=== PATIENT | female | born 1990 | race Caucasian/White ===

== ENCOUNTER 2016-05-06 07:00 | Inpatient (IN) | payer OTHER ==
[2016-05-06] MEDS ORDERED: CITRIC ACID/SODIUM CITRATE 30 ML UNIT-DOSE CUP PO ONE (08:00)
[2016-05-06] MEDS ORDERED: ELECTROLYTE-148 SOLN 1,000 ML IV SCH (08:00)
[2016-05-06] MEDS ORDERED: ONDANSETRON 4 MG/2 ML VIAL IVPB PRN (08:06)
[2016-05-06] MEDS ORDERED: KETOROLAC TROMETHAMINE 30 MG/1 ML VIAL IM PRN (08:12)
[2016-05-06 08:22] VITALS: BMI 17.3
[2016-05-06] MEDS: ELECTROLYTE-148 SOLN 1,000 ML IV SCH (08:35)
--- NOTE | 2016-05-06 09:17 | HP ---
Past Medical History - Primary Care Physician PCP:: Karthik Cortes - Admission Chief Complaint: 38 weeks, previous c/s request of repeat c/s History of Present Illness: 25 yo f edc by date 05/08/16, by late sono 05/13/16 with previous c//s unknown type requesting repeat c/s, risk of repeat c/s discussed, explained ,declined ,fhr cat 1 tracing, cx clp History Source: Patient Limitations to Obtaining History: Language Barrier - Past Medical History ...: 2 ...Para: 1 ...Term: 1 ...: 0 ...Spon : 0 ...Induced : 0 ...Multiple Gestation: 0 ...LMP: 08/02/15 ... Weeks Gestation by Dates: 39.5 ...EDC by Dates: 05/08/16 ...EDC by Sono: 05/13/16 Infectious Disease: Yes: STD's (txed for chlamydia ,apr 29) - Past Surgical History Past Surgical History: Yes: Hx Myomectomy: No Hx Transabdominal Cerclage: No - Smoking History Smoking history: Never smoked Have you smoked in the past 12 months: No - Alcohol/Substance Use Hx Alcohol Use: No - Social History Usual Living Arrangement: Yes: With Spouse History of Recent Travel: No Home Medications - Allergies Allergies/Adverse Reactions: Allergies Allergy/AdvReac Type Severity Reaction Status Date / Time No Known Allergies Allergy Verified 05/06/16 07:31 - Home Medications Home Medications: Ambulatory Orders Ferrous Sulfate [Feosol] 325 mg PO DAILY 04/29/16 Vit/Iron Fumarate/FA [ Tablet] 1 tablet PO DAILY 04/29/16 Review of Systems - Review of Systems Constitutional: reports: No Symptoms Eyes: reports: No Symptoms HENT: reports: No Symptoms Neck: reports: No Symptoms Cardiovascular: reports: No Symptoms Respiratory: reports: No Symptoms Gastrointestinal: reports: No Symptoms Genitourinary: reports: No Symptoms Breasts: reports: No Symptoms Reported Musculoskeletal: reports: No Symptoms Integumentary: reports: No Symptoms Neurological: reports: No Symptoms Endocrine: reports: No Symptoms Hematology/Lymphatic: reports: No Symptoms Psychiatric: reports: No Symptoms Physical Exam - Maternity Vital Signs: Vital Signs Temperature 98.2 F 05/06/16 07:30 Pulse Rate 104 H 05/06/16 07:30 Respiratory Rate 18 05/06/16 07:30 Blood Pressure 127/76 05/06/16 07:30 O2 Sat by Pulse Oximetry (%) Constitutional: Yes: Well Nourished, No Distress, Calm Eyes: Yes: WNL, Conjunctiva Clear, EOM Intact HENT: Yes: WNL, Atraumatic, Normocephalic Neck: Yes: WNL, Supple, Trachea Midline Cardiovascular: Yes: WNL, Regular Rate and Rhythm Breast(s): Yes: WNL - Abdominal Exam/OB Fundal Height: 40 Number of Fetuses: Single Presentation: Vertex Contractions: No Intensity: Unaware Heart Rate Location: [facility] Category: I Accelerations: Uniform Decelerations: None - Vaginal Exam/OB Vaginal Bleediing: No Speculum Exam: No Dilatation (cm): closed Effacement (%): 0 Amniotic Membrane Status: Intact Presentation: Vertex/Position Station: -3 - Physical Exam Extremities: Yes: WNL Edema: Yes Edema: LLE: Trace, RLE: Trace Integumentary: Yes: Rash (hx of eczyma both arm) Deep Tendon Reflex Grade: Normal +2 ...Motor Strength: WNL Hemorrhage Risk Assessment - Risk Factors Medium Risk Factors: Yes: Prior , uterine surgery,or multiple laparotomies Risk Score: 1 Risk Level: Medium Risk Problem List - Problems (1) with 39 completed weeks gestation Code(s): Z3A.39 - 39 WEEKS GESTATION OF (2) Previous section complicating Code(s): O34.21 - MATERNAL CARE FOR SCAR FROM PREVIOUS * DO NOT USE * Assessment/Plan repeat c/s ,rba discussed
[2016-05-06] MEDS: CEFAZOLIN 1 GM/D5W 50 ML IVPB SCH ×2 (09:20→17:33)
[2016-05-06] MEDS ORDERED: BENZOCAINE 28 GM HEMORRHOIDAL OINTMENT PR PRN (09:59)
[2016-05-06] MEDS ORDERED: IBUPROFEN 800 MG/8 ML IJ IVPB PRN (09:59)
[2016-05-06] MEDS ORDERED: oxyCODONE HCL 5 MG TABLET PO PRN (09:59)
[2016-05-06] MEDS ORDERED: METHYLERGONOVINE MALEATE 0.2 MG/1 ML AMP IM PRN (09:59)
[2016-05-06] MEDS ORDERED: BENZOCAINE 20% 57 GM BOTTLE TP PRN (09:59)
[2016-05-06] MEDS ORDERED: diphenhydrAMINE HCL 25 MG CAPSULE (FP) PO PRN (09:59)
[2016-05-06] MEDS ORDERED: WITCH HAZEL 50% (TUCKS) 40 PAD/JAR PAD TP PRN (09:59)
[2016-05-06] MEDS ORDERED: OXYTOCIN 20 UNITS in 0.9% NS 1,000 ML IV SCH (10:00)
[2016-05-06] MEDS: FERROUS SO4 325 MG TABLET (FP) PO SCH (10:42)
[2016-05-06 11:34] LABS: URINE MARIJUANA THC NEGATIVE ng/ml (CUTOFF=50)
--- NOTE | 2016-05-06 14:50 | OP ---
DATE OF OPERATION: 05/06/2016 PREOPERATIVE DIAGNOSIS: , 39 weeks, previous section, request of repeat section. POSTOPERATIVE DIAGNOSIS: , 39 weeks, previous section, request of repeat section. PROCEDURE: Repeat low segment transverse section. SURGEON: Nadja Cortes MD UKE OPERATOR: MOUNIKA Montilla ANESTHESIOLOGIST: ESTIMATED BLOOD LOSS: 500 mL. FINDING: Live baby girl, LOT position, cord around the neck x1. OPERATION: The patient was taken to the operating room, had adequate spinal anesthesia. Abdomen and perineum were prepped and draped. Pfannenstiel abdominal skin incision was made over the previous incision. Old scar was removed. Abdominal wall was cut layer by layer until peritoneum was exposed and incised. Upon entering the abdominal cavity, lower uterine segment was identified, and uterovesical fold of peritoneum was established, bladder was pushed down. Then, with the lower blade of the [place] retractor in the pelvis, a low transverse uterine incision was made. Incision extended laterally. Amniotic sac was entered. Clear fluid, head delivered, and nasopharynx was suctioned. Cord around the neck x1 was reduced, and live baby girl was delivered from LOT position without any difficulty. Placenta was delivered manually. Uterine cavity was cleaned of all remaining tissue. Uterine incision was closed using 2 layers, 1st layer with 0 Biosyn continuous suture, the 2nd layer with 0 Biosyn imbricating the 1st layer. Bladder flap was closed with 0 Biosyn continuous suture. Both tubes and ovaries were checked, but normal. No active bleeding was seen. All the lap pad, sponge, and instrument counts were correct. Then, peritoneum was closed with 0 Biosyn continuous suture, muscles were brought together with interrupted sutures of 0 Biosyn, fascia was closed with 0 Biosyn continuous suture, subcutaneous fat with interrupted suture of 0 Biosyn, and the skin was closed with ej. Patient tolerated the procedure well, left the OR in good condition. NADJA CORTES M.D. [id number]
[2016-05-06] MEDS: DEXTROSE 5%-LACTATED RINGERS 1,000 ML IV SCH (17:34)
[2016-05-07] MEDS: ACETAMINOPHEN 325 MG TABLET (FP) PO PRN ×4 (03:07→21:33)
[2016-05-07] MEDS: IBUPROFEN 600 MG TABLET (FP) PO PRN ×4 (03:07→21:34)
[2016-05-07] MEDS: DEXTROSE 5%-LACTATED RINGERS 1,000 ML IV SCH (03:08)
[2016-05-07 05:56] LABS: BASOPHIL 0.5 % (0-2.0); MCH 28.3 pg (25.7-33.7); MCHC 33.1 g/dl (32.0-36.0); MEAN CELL VOLUME 85.3 fl (80-96); MEAN PLT VOLUME 9.3 fl (7.5-11.1); NEUTROPHILS 65.5 % (42.8-82.8); PLATELET COUNT 170 K/MM3 (134-434); RDW 14.8 % (11.6-15.6); WHITE BLOOD COUNT 7.6 K/mm3 (4.0-10.0)
--- NOTE | 2016-05-07 06:44 | PN ---
Post Progress Note - Subjective Subjective: c/o pain scale 5/10 not voided since partida is taken out Post Day: 1 Type of Delivery: Repeat C/S Vital Signs: Vital Signs Temperature 98.7 F 05/07/16 05:57 Pulse Rate 69 05/07/16 05:57 Respiratory Rate 18 05/07/16 05:57 Blood Pressure 100/58 05/07/16 05:57 O2 Sat by Pulse Oximetry (%) 100 05/06/16 11:45 Breast Exam: Yes: Soft. No: Engorged Uterus: Yes: Fundus Firm, Fundus below umbilicus, Non-tender Incision: Yes: Dressing dry and intact. No: Redness, Oozing Abdomen/GI: Yes: Abdomen soft (BS active), Tender, Tolerating PO (vclear liqiuids ). No: Abdominal Distention, Passing flatus Lochia: Yes: Rubra Lochia, amount: Moderate Extremities: Yes: Calves non-tender Activity: Other (not oob yet ) - Labs Labs: CBC WBC 7.6 K/mm3 (4.0-10.0) 05/07/16 05:35 RBC 3.72 M/mm3 (3.60-5.2) 05/07/16 05:35 Hgb 10.5 GM/dL (10.7-15.3) L 05/07/16 05:35 Hct 31.7 % (32.4-45.2) L 05/07/16 05:35 MCV 85.3 fl (80-96) 05/07/16 05:35 MCHC 33.1 g/dl (32.0-36.0) 05/07/16 05:35 RDW 14.8 % (11.6-15.6) 05/07/16 05:35 Plt Count 170 K/MM3 (134-434) 05/07/16 05:35 MPV 9.3 fl (7.5-11.1) 05/07/16 05:35 Neutrophils % 65.5 % (42.8-82.8) D 05/07/16 05:35 Lymphocytes % 22.7 % (8-40) D 05/07/16 05:35 Monocytes % 8.3 % (3.8-10.2) 05/07/16 05:35 Eosinophils % 3.0 % (0-4.5) 05/07/16 05:35 Basophils % 0.5 % (0-2.0) 05/07/16 05:35 Other Findings, Remarks: i/o adequate Assessment/Plan ass stable encourage anbulation, deep breathing repeat cbc today
[2016-05-07] MEDS: ENOXAPARIN NA (PORCINE) 40 MG/0.4 ML DISP.SYRIN SQ SCH (09:54)
[2016-05-07] MEDS: SIMETHICONE 80 MG TAB.CHEW (FP) PO PRN ×3 (09:54→21:32)
[2016-05-07] MEDS ORDERED: BISACODYL 10 MG SUPP.RECT RC PRN (09:59)
[2016-05-07] MEDS ORDERED: DIPHTH,PERTUSS(ACELL),TET 0.5 ML DISP.SYRIN IM ONE (10:00)
[2016-05-07] MEDS: FERROUS SO4 325 MG TABLET (FP) PO SCH (10:01)
[2016-05-07] MEDS: PRENATAL VITAMINS W/ FOLIC ACID TABLET (FP) PO SCH (10:01)
--- NOTE | 2016-05-07 14:52 | PN ---
Progress Note, Physician Chief Complaint: Pt. has not gotten out of bed yet. is moving extremities and has good strength. No HUNTER, Still has partida. - Current Medication List Current Medications: Active Medications Acetaminophen (Tylenol -) 650 mg PO Q4H PRN PRN Reason: FEVER OR PAIN Last Admin: 05/07/16 09:53 Dose: 650 mg Benzocaine (Americaine Ointment -) 1 applic LA PRN PRN PRN Reason: PAIN Benzocaine (Americaine 20% [place] -) 1 spray TP PRN PRN PRN Reason: PAIN Bisacodyl (Dulcolax Suppository -) 10 mg RC PRN PRN PRN Reason: CONSTIPATION Diphenhydramine HCl (Benadryl Injection -) 25 mg IVPUSH Q4H PRN PRN Reason: Pruritis Diphenhydramine HCl (Benadryl -) 25 mg PO Q8H PRN PRN Reason: FOR ITCHING Enoxaparin Sodium (Lovenox -) 40 mg SQ DAILY [facility] Last Admin: 05/07/16 09:54 Dose: 40 mg Ferrous Sulfate (Feosol -) 325 mg PO DAILY [facility] Last Admin: 05/07/16 10:01 Dose: Not Given Parenteral Electrolytes (Plasma-Lyte 148 -) 1,000 mls @ 125 mls/hr IV ASDIR [facility] Last Admin: 05/06/16 08:35 Dose: 125 mls/hr Dextrose/Lactated Ringer's (D5-Lr -) 1,000 mls @ 125 mls/hr IV ASDIR [facility] Last Admin: 05/07/16 03:08 Dose: 125 mls/hr Ibuprofen (Motrin -) 600 mg PO Q4H PRN PRN Reason: PAIN Last Admin: 05/07/16 09:52 Dose: 600 mg Ketorolac Tromethamine (Toradol Injection -) 30 mg IM Q6H PRN PRN Reason: PAIN Stop: 05/11/16 08:11 Methylergonovine Maleate (Methergine Injection -) 0.2 mg IM Q4H PRN PRN Reason: EXCESSIVE BLEEDING Oxycodone HCl (Roxicodone -) 5 mg PO Q4H PRN PRN Reason: PAIN LEVEL 1-5 Oxycodone HCl (Roxicodone -) 10 mg PO Q4H PRN PRN Reason: PAIN LEVEL 6-10 Multivit/Folic Acid/Iron ( Vitamins (Sjr) -) 1 tab PO DAILY [facility] Last Admin: 05/07/16 10:01 Dose: Not Given Senna/Docusate Sodium (Pericolace -) 2 tablet PO HS PRN PRN Reason: CONSTIPATION Simethicone (Mylicon -) 80 mg PO Q4H PRN PRN Reason: GAS Last Admin: 05/07/16 09:54 Dose: 80 mg Witch Susan/Glycerin (Tucks Pads -) 1 pad TP PRN PRN PRN Reason: PAIN - Objective Vital Signs: Vital Signs Temperature 97.8 F 05/07/16 10:00 Pulse Rate 72 05/07/16 10:00 Respiratory Rate 20 05/07/16 10:00 Blood Pressure 105/69 05/07/16 10:00 O2 Sat by Pulse Oximetry (%) 100 05/06/16 11:45 Constitutional: Yes: Well Nourished, No Distress, Calm Musculoskeletal: Yes: WNL Neurological: Yes: WNL, Alert, Oriented ...Motor Strength: WNL Labs: CBC, BMP 05/07/16 05:35 Assessment/Plan POD#1 s/p under spinal. Doing well. D/C from anesthesia care when she voids.
[2016-05-07] MEDS: oxyCODONE HCL 5 MG TABLET PO PRN (22:57)
--- NOTE | 2016-05-08 06:14 | PN ---
Post Progress Note Post Day: 2 Type of Delivery: Repeat C/S Vital Signs: Vital Signs Temperature 98.4 F 05/07/16 22:00 Pulse Rate 73 05/07/16 22:00 Respiratory Rate 18 05/07/16 22:00 Blood Pressure 119/75 05/07/16 22:00 O2 Sat by Pulse Oximetry (%) 100 05/06/16 11:45 Breast Exam: Yes: Soft Uterus: Yes: Fundus Firm Incision: Yes: [place] intact Abdomen/GI: Yes: Abdomen soft Lochia: Yes: Rubra Lochia, amount: Small Extremities: Yes: Calves non-tender Perineum: Yes: Intact Activity: Ambulating - Labs Labs: CBC WBC 7.6 K/mm3 (4.0-10.0) 05/07/16 05:35 RBC 3.72 M/mm3 (3.60-5.2) 05/07/16 05:35 Hgb 10.5 GM/dL (10.7-15.3) L 05/07/16 05:35 Hct 31.7 % (32.4-45.2) L 05/07/16 05:35 MCV 85.3 fl (80-96) 05/07/16 05:35 MCHC 33.1 g/dl (32.0-36.0) 05/07/16 05:35 RDW 14.8 % (11.6-15.6) 05/07/16 05:35 Plt Count 170 K/MM3 (134-434) 05/07/16 05:35 MPV 9.3 fl (7.5-11.1) 05/07/16 05:35 Neutrophils % 65.5 % (42.8-82.8) D 05/07/16 05:35 Lymphocytes % 22.7 % (8-40) D 05/07/16 05:35 Monocytes % 8.3 % (3.8-10.2) 05/07/16 05:35 Eosinophils % 3.0 % (0-4.5) 05/07/16 05:35 Basophils % 0.5 % (0-2.0) 05/07/16 05:35 Assessment/Plan as sabove oob pain meds
[2016-05-08] MEDS: SIMETHICONE 80 MG TAB.CHEW (FP) PO PRN ×3 (08:19→22:59)
[2016-05-08] MEDS: oxyCODONE HCL 5 MG TABLET PO PRN ×3 (08:19→22:59)
[2016-05-08] MEDS: ACETAMINOPHEN 325 MG TABLET (FP) PO PRN ×3 (08:20→23:04)
[2016-05-08] MEDS: guaiFENesin 200 MG/10 ML 10 ML UNIT-DOSE CUPS PO PRN ×3 (10:54→22:58)
[2016-05-08] MEDS: ENOXAPARIN NA (PORCINE) 40 MG/0.4 ML DISP.SYRIN SQ SCH (10:54)
[2016-05-08] MEDS: PRENATAL VITAMINS W/ FOLIC ACID TABLET (FP) PO SCH (10:54)
[2016-05-08] MEDS: FERROUS SO4 325 MG TABLET (FP) PO SCH (10:54)
[2016-05-08] MEDS: DEXTROSE 5%-LACTATED RINGERS 1,000 ML IV SCH (10:55)
[2016-05-08] MEDS: SENNOSIDES/DOCUSATE COMBO (SENNA PLUS) TABLET (UD) PO PRN (22:59)
[2016-05-09 07:27] LABS: BASOPHIL 0.4 % (0-2.0); MCH 28.2 pg (25.7-33.7); MEAN CELL VOLUME 85.3 fl (80-96); MEAN PLT VOLUME 8.8 fl (7.5-11.1); NEUTROPHILS 65.2 % (42.8-82.8); PLATELET COUNT 208 K/MM3 (134-434); RDW 14.6 % (11.6-15.6); WHITE BLOOD COUNT 7.8 K/mm3 (4.0-10.0)
--- NOTE | 2016-05-09 08:04 | PN ---
Progress Note (short form) - Note Progress Note: pod 3 , has dry cough , no fever CBC, BMP 05/09/16 06:00 Last Vital Signs Temp Pulse Resp BP Pulse Ox 98 F 80 18 128/64 100 05/08/16 22:00 05/08/16 22:00 05/08/16 22:00 05/08/16 22:00 05/06/16 11:45 abdomen soft, no cva, no distension, incision dry, clean no calf tenderness plan incentive spirometry, ambulate, if cough cont cxr Problem List - Problems (1) with 39 completed weeks gestation Code(s): Z3A.39 - 39 WEEKS GESTATION OF (2) Previous section complicating Code(s): O34.21 - MATERNAL CARE FOR SCAR FROM PREVIOUS * DO NOT USE *
[2016-05-09] MEDS: ENOXAPARIN NA (PORCINE) 40 MG/0.4 ML DISP.SYRIN SQ SCH (09:23)
[2016-05-09] MEDS: PRENATAL VITAMINS W/ FOLIC ACID TABLET (FP) PO SCH (09:24)
[2016-05-09] MEDS: ACETAMINOPHEN 325 MG TABLET (FP) PO PRN ×2 (09:24→20:03)
[2016-05-09] MEDS: guaiFENesin 200 MG/10 ML 10 ML UNIT-DOSE CUPS PO PRN ×2 (09:24→20:04)
[2016-05-09] MEDS: FERROUS SO4 325 MG TABLET (FP) PO SCH (09:24)
[2016-05-09] MEDS: oxyCODONE HCL 5 MG TABLET PO PRN (09:26)
[2016-05-09] MEDS: DEXTROSE 5%-LACTATED RINGERS 1,000 ML IV SCH (10:08)
[2016-05-09] MEDS: ELECTROLYTE-148 SOLN 1,000 ML IV SCH (11:42)
[2016-05-09] MEDS: IBUPROFEN 600 MG TABLET (FP) PO PRN (19:59)
[2016-05-09] MEDS: SENNOSIDES/DOCUSATE COMBO (SENNA PLUS) TABLET (UD) PO PRN (19:59)
[2016-05-09] MEDS: SIMETHICONE 80 MG TAB.CHEW (FP) PO PRN (19:59)
[2016-05-10 09:35] VITALS: BP 118/71; PULSE 76; TEMP 98.3
[2016-05-10] MEDS: PRENATAL VITAMINS W/ FOLIC ACID TABLET (FP) PO SCH (10:13)
[2016-05-10] MEDS: ENOXAPARIN NA (PORCINE) 40 MG/0.4 ML DISP.SYRIN SQ SCH (10:13)
[2016-05-10] MEDS: FERROUS SO4 325 MG TABLET (FP) PO SCH (10:13)
[2016-05-10] MEDS: ELECTROLYTE-148 SOLN 1,000 ML IV SCH (10:17)
[2016-05-10] MEDS: DEXTROSE 5%-LACTATED RINGERS 1,000 ML IV SCH (10:17)
--- NOTE | 2016-05-12 13:48 | PATH ---
Surgical Pathology Report Patient Name: CRISPIN PUENTE Med. Rec. 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 Specimen(s) Received PLACENTA Clinical History 39 weeks previous x1 Final Diagnosis PLACENTA, DELIVERY: FOCALLY DISRUPTED THIRD TRIMESTER PLACENTA WITH THREE VESSEL UMBILICAL CORD AND UNREMARKABLE PLACENTAL MEMBRANES. Electronically Signed Brice Telles M.D. Gross Description The specimen is received fresh labeled placenta and is a 516 gram, 19.0 x 16.0 x 2.5 cm. placenta with attached membranes and umbilical cord. The attached membranes are martinez, translucent with focal opacities and insert marginally. The umbilical cord measures 40 cm. in length and averages 1.1 cm. in diameter. The cord inserts eccentrically, 3 cm. to the nearest margin. No true knots or strictures are identified. Cut surface of the umbilical cord reveals 3 vessels. The surface is kahn blue with moderate fibrin deposition and appropriate caliber vessels. The maternal surface is red-brown with focal defects. Sectioning reveals red-brown, spongy parenchyma. No lesions are identified. [place] Splitter Operator sections are submitted in three cassettes as follows: 1- membrane rolls and umbilical cord; 2-3- full thickness sections of placenta. /05/09/2016 [facility]05/09/2016
--- NOTE | 2016-05-15 08:34 | DS ---
Physical Exam-AMUSEMENT RIDE OPERATOR Vital Signs: Vital Signs Temperature 98.3 F 05/10/16 09:32 Pulse Rate 76 05/10/16 09:32 Respiratory Rate 18 05/10/16 09:32 Blood Pressure 118/71 05/10/16 09:32 O2 Sat by Pulse Oximetry (%) 100 05/06/16 11:45 Constitutional: Yes: Well Nourished, No Distress, Calm Eyes: Yes: WNL, Conjunctiva Clear, EOM Intact HENT: Yes: WNL, Atraumatic, Normocephalic Neck: Yes: WNL, Supple, Trachea Midline Cardiovascular: Yes: WNL, Regular Rate and Rhythm Respiratory: Yes: WNL, Regular, CTA Bilaterally Gastrointestinal: Yes: WNL ...Rectal Exam: Yes: WNL Renal/: Yes: WNL External Genitalia: Yes: Normal ....Post : Yes: Uterus firm, Uterus non-tender, Slight lochia rubra Breast(s): Yes: WNL Musculoskeletal: Yes: WNL Extremities: Yes: WNL Edema: No Integumentary: Yes: WNL Wound/Incision: Yes: Clean/Dry, Well Approximated, Homero Intact Neurological: Yes: WNL, Alert, Oriented ...Motor Strength: WNL Psychiatric: Yes: WNL, Alert, Oriented Labs: CBC, BMP 05/09/16 06:00 Delivery - Delivery Section: Repeat, Low Flap Transverse (no complication) Type of Anesthesia: Spinal Episiotomy/Laceration: None EBL (cc): 500 Delivery, Single - Stages of Labor Date of Delivery: 05/06/16 Time of Delivery: 09:38 Time Placenta Delivered: 09:39 Placenta: Yes: Expressed - Condition of Infant Azure Architect/Public Health Social Worker Present: Yes Name: Radha Menesesia Infant Gender: Female Weight: 7 lb 6 oz Position: Left, OT Total Hours ROM (Hrs/Mins): 0/2 - 1 Minute Total Score: 9 5 Minutes Total Score: 9 - [place] Feeding Plan Initial Plan: Exclusive throughout hospitalization Discharge Summary Reason For Visit: C/SECTION Procedures: Principal: repeat LST c/s Hospital Course: uneventful Condition: Good - Instructions Diet, Activity, Other Instructions: regular diet, follow up [facility] care 1 week call [facility] thursday05/12/16 to schedule staple removal Referrals: Karthik Cortes MD [Staff Physician] - Disposition: HOME - Home Medications Comprehensive Discharge Medication List: Ambulatory Orders Ferrous Sulfate [Feosol] 325 mg PO DAILY 04/29/16 Vit/Iron Fumarate/FA [ Tablet] 1 tablet PO DAILY 04/29/16 Ibuprofen [Motrin -] 600 mg PO QID #28 tablet 05/08/16
== END 2016-05-10 13:30 | disposition home or self-care (01) | DRG 540 ==
LOC: JLDR 07:00 → J3W 12:19
PROVIDERS: ADMIT Obstetrics & Gynecology; ATTEND Obstetrics & Gynecology
PROC: 10D00Z1 Extraction of Products of Conception, Low, Open Approach (ICD-10-PCS; principal; 2016-05-06)
DX: O34.211 Maternal care for low transverse scar from previous cesarean delivery (principal); Z3A.39 39 weeks gestation of pregnancy; Z37.0 Single live birth
CPT/HCPCS: 36415; 71020-TC; 80307; 85025; 86850; 86900; 86901; 88307-TC; 90715; 94010